=== PATIENT | male | born 1970 | race Caucasian/White ===

== ENCOUNTER 2023-07-24 13:24 | Emergency (ER) | payer OTHER, SELFPAY ==
[2023-07-24 13:31] VITALS: BP 122/83; BMI 30.8
[2023-07-24 14:00] VITALS: BP 120/80
--- NOTE | 2023-07-24 14:23 | ED.GENMED ---
History of Present Illness
General
Chief Complaint: Allergic Reaction
Time Seen by Provider: 07/24/23 14:03
Travel History
Have you had any contact with someone who has COVID-19?: No
Do you have any symptoms of coronavirus? Fever > 100 degrees, chills, cough, shortness of breath, sore throat, loss of taste or smell, muscle aches, or headache?: No
History of Present Illness
History of Present Illness:
53-year-old male presents to the emergency department for evaluation of abrupt onset of bilateral hand itching followed by redness to the skin and a sensation of dyspnea that occurred approxi-1 hour prior to arrival. It began within 10 minutes of
taking naproxen for a headache. Denies any associated vision changes, diplopia, neck pain, fevers, chills, sweats. He has a sensation of something stuck in his throat but is able to tolerate secretions and oral fluids. No history of allergic
reaction to NSAIDs, tolerates Aleve frequently for migraines
Past History
Past History
ED Past Medical History: Cancer and Other (Vestibular neuritis)
ED Past Surgical History: Bowel resection, Orthopedic and Other (Prostatectomy)
Social History
Tobacco: Non-smoker
Alcohol: None
Drug: None
Personal:
Living: with family
Employment: Employed
Family History
Family History: Other
Review of Systems
Review of Systems
Allergies reviewed?: Yes
All Other Systems: ROS reviewed and negative except as documented in HPI and ROS
Phy Exam
Physical Exam
Physical Exam:
GEN: Well appearing, NAD, WDWN
HEENT: Oral mucosa moist, no scleral icterus, no angioedema
Cardiac: Regular rate and rhythm, no murmurs
Lung: No respiratory distress, no tachypnea, lungs clear to auscultation
MSK: No gross deformity or injuries
Skin: Good color, no pallor or jaundice, no rashes
Neuro: AO x3, moves all extremities freely
Psych: Calm, cooperative
Course
Orders/Labs/Results
Orders:
Orders
07/24/23 13:37
ECG [Electrocardiogram (*1)] Urgent
Reason for Study: Chest Pain
EKG- Treatment ONCE
07/24/23 14:24
Complete Blood Count/With Diff Urgent
Comprehensive Metabolic Panel Urgent
07/24/23 15:22
Mag Hydrox/Al Hydrox/Simeth [Maalox] 30 ml Phenobarb/Hyoscy/Atropine/Scop [] 10 ml Viscous Lidocaine 2% [Xylocaine Viscous Cup] 10 ml PO NOW
07/24/23 15:30
Ketorolac [Toradol] 15 mg IV NOW STA
Metoclopramide [Reglan] 10 mg IV NOW STA
07/24/23 15:39
Mag Hydrox/Al Hydrox/Simeth [Maalox] 30 ml .ROUTE .STK-MED ONE
Phenobarb/Hyoscy/Atropine/Scop [] 10 ml .ROUTE .STK-MED ONE
Viscous Lidocaine 2% [Xylocaine Viscous Cup] 15 ml .ROUTE .STK-MED ONE
Abnormal Lab Results
07/24/23
14:24
WBC 12.2 H 10^3/uL
(4.8-10.8)
Abs Immat Gran (auto) 0.1 H 10^3/uL
(0-0.05)
Absolute Neuts (auto) 9.7 H 10^3/uL
(1.4-6.5)
Absolute Monos (auto) 0.8 H 10^3/uL
(0.1-0.6)
Neutrophils % 79.7 H %
(42.2-75.2)
Lymphocytes % 12.9 L %
(20.5-51.1)
BUN 23 H mg/dl
(9-20)
Glucose 119 H mg/dl
(70-99)
07/24/23 14:24
07/24/23 14:24
Vital Signs
Initial and Last Documented VS:
Initial Vital Signs
Temp Pulse Resp BP Pulse Ox
98.5 F 59 20 122/83 98
07/24/23 13:31 07/24/23 13:31 07/24/23 13:31 07/24/23 13:31 07/24/23 13:31
Last Documented Vital Signs
Temp Pulse Resp BP Pulse Ox
98.5 F 61 0 111/74 98
07/24/23 13:31 07/24/23 16:15 07/24/23 16:15 07/24/23 16:00 07/24/23 13:31
MDM/Problems Addressed
MDM/Problems Addressed:
Unclear etiology to symptoms, do not feel this represents an allergic reaction given lack of respiratory symptoms. May be atypical migraine with vague neurologic symptoms, his symptoms dramatically improved in the emergency department, labs
reassuring
*Critical Care Note
Total Time (30-74mins, 75-104mins- exclusive of procedures): Not Applicable
ED Attending Note
-
Portions of this chart may have been created with voice recognition software.� Occasional wrong word or��sound alike� substitutions may have occurred due to the inherent limitations of voice recognition software.
Discharge Plan
Departure
Patient Disposition: Home (Routine Discharge)
Date of Disposition: 07/24/23
Time of Disposition: 16:22
Patient with high blood pressure during this ER visit?: No
Discharge Problem:
Atypical migraine
Instructions: Migraine in adults
Prescriptions:
No Action
meclizine 25 mg tablet
25 mg PO TID PRN (Reason: dizziness) Qty: 20 0RF
ondansetron 4 mg tablet,disintegrating
4 mg PO Q8H PRN (Reason: nausea and vomiting) Qty: 20 0RF
Referrals:
Lenka Artis PA [Family Provider] -
Interventions
Interventions:
*Risk Screen - Suicide Last Done: 07/24/23 13:31
*General Assessment Last Done: 07/24/23 13:31
*Neglect/Abuse Screening Last Done: 07/24/23 13:31
ED- Fall Risk Assessment Last Done: 07/24/23 14:28
*ED COVID-19 Vaccine History Last Done: 07/24/23 13:31
*Nursing Disposition Last Done: 07/24/23 16:34
ED- Cardiac Assessment Last Done: 07/24/23 14:28
ED- Pulmonary Assessment Last Done: 07/24/23 14:28
ED-Skin Assessment Last Done: 07/24/23 14:28
Discharge Date and Time
Discharge Date/Time: 07/24/23 16:34
Print Language: BULGARIAN
[2023-07-24 14:32] LABS: % Basophils 0.2 % (0-2); % Eosinophils 0.4 % (0-6); % Immature Granulocytes 0.5 % (0-0.5); % Lymphocytes 12.9 % (20.5-51.1); % Monocytes 6.3 % (1.7-9.3); % Neutrophils 79.7 % (42.2-75.2); Absolute Eosinophils 0.1 10^3/uL (0-0.7); Absolute Immature Granulocytes 0.1 10^3/uL (0-0.05); Absolute Lymphocytes 1.6 10^3/uL (1.2-3.4); Absolute Monocytes 0.8 10^3/uL (0.1-0.6); Absolute Neutrophils 9.7 10^3/uL (1.4-6.5); Hematocrit 45.3 % (39.0-52.0); Hemoglobin 16.1 g/dL (13.0-18.0); Mean Corp Hgb Conc. 35.5 g/dL (33.0-37.0); Mean Corpuscular Volume 81.6 fL (80.0-94.0); Nucleated Red Blood Cells % 0 % (-); Platelet Count 227 10^3/uL (130-400); Red Blood Cell Count 5.55 10^6/uL (4.70-6.10); Red Cell Dist. Width 12.5 % (11.5-14.5); White Blood Cell Count 12.2 10^3/uL (4.8-10.8)
[2023-07-24 14:54] LABS: ALT (SGPT) 17 U/L (0-50); AST (SGOT) 21 U/L (17-59); Albumin 3.8 g/dl (3.5-5.0); Alkaline Phosphatase 68 U/L (38-126); Blood Urea Nitrogen 23 mg/dl (9-20); Calcium 8.8 mg/dl (8.4-10.2); Carbon Dioxide 27 mmol/L (22-30); Chloride 105 mmol/L (98-107); Estimated Creatinine Clearance 102 ml/min; Glucose 119 mg/dl (70-99); Potassium 3.9 mmol/L (3.5-5.1); Sodium 139 mmol/L (135-145); Total Bilirubin 0.9 mg/dl (0.2-1.3); Total Protein 6.9 g/dl (6.3-8.2); eGFR > 60.00
[2023-07-24 15:00] VITALS: BP 115/80
[2023-07-24] MEDS: REGLAN 10 MG IV (15:41)
[2023-07-24] MEDS: TORADOL 15 MG IV (15:41)
[2023-07-24] MEDS: MAALOX 50 PO (15:42)
[2023-07-24 16:00] VITALS: BP 111/74
== END 2023-07-24 16:34 | disposition home or self-care (01) ==
LOC: EMR 13:24
PROVIDERS: Physician Assistant; EMERGENCY PHYSICIAN Emergency Medicine; FAMILY PHYSICIAN Family Medicine
DX: G43.009 Migraine without aura, not intractable, without status migrainosus (principal); R06.00 Dyspnea, unspecified; L29.9 Pruritus, unspecified; Z85.9 Personal history of malignant neoplasm, unspecified; Z90.79 Acquired absence of other genital organ(s); Z98.0 Intestinal bypass and anastomosis status
CPT/HCPCS: 99284; 96374; 96375; 80053; 85025; 93005